=== PATIENT | male | born 1950 | race Caucasian/White ===

== ENCOUNTER → 2021-01-19 | Outpatient (CLI) | payer MEDICARE, OTHER | END | disposition home or self-care (01) | LOC: RAD 14:40 | PROVIDERS: ATTEND Internal Medicine | DX: M19.012 Primary osteoarthritis, left shoulder (principal); M19.011 Primary osteoarthritis, right shoulder ==

== ENCOUNTER → 2021-07-20 | Outpatient (CLI) | payer MEDICARE, OTHER | END | disposition home or self-care (01) | LOC: RAD 12:07 | PROVIDERS: ATTEND Internal Medicine | DX: M47.817 Spondylosis without myelopathy or radiculopathy, lumbosacral region (principal); M51.37 Other intervertebral disc degeneration, lumbosacral region; M25.78 Osteophyte, vertebrae; I70.0 Atherosclerosis of aorta ==

== ENCOUNTER → 2022-02-18 | Outpatient (CLI) | payer MEDICARE, OTHER | END | disposition home or self-care (01) | LOC: MRI 09:58 | PROVIDERS: ATTEND Internal Medicine | DX: M47.817 Spondylosis without myelopathy or radiculopathy, lumbosacral region (principal); M48.07 Spinal stenosis, lumbosacral region; M51.27 Other intervertebral disc displacement, lumbosacral region ==

== ENCOUNTER → 2023-07-24 | Outpatient (CLI) | payer MEDICARE, OTHER | END | disposition home or self-care (01) | LOC: RAD 15:01 | PROVIDERS: ATTEND Nurse Practitioner Family | DX: M19.011 Primary osteoarthritis, right shoulder (principal) ==

== ENCOUNTER → 2023-11-26 | Outpatient (CLI) | payer MEDICARE, OTHER | END | disposition home or self-care (01) | LOC: RAD 01:08 → MRI 09:00 → RAD 09:00 | PROVIDERS: ATTEND Student in an Organized Health Care Education/Training Program | DX: M51.16 Intervertebral disc disorders with radiculopathy, lumbar region (principal); M47.27 Other spondylosis with radiculopathy, lumbosacral region; I70.0 Atherosclerosis of aorta; M43.17 Spondylolisthesis, lumbosacral region; M25.78 Osteophyte, vertebrae; M48.07 Spinal stenosis, lumbosacral region ==